=== PATIENT | female | born 1980 | race Caucasian/White ===

== ENCOUNTER → 2023-02-13 10:30 | Outpatient (BNV) | payer OTHER, SELFPAY | PROVIDERS: Visit Provider Clinical Nurse Specialist Psychiatric/Mental Health | DX: F31.12 Bipolar disorder, current episode manic without psychotic features, moderate (principal); F43.10 Post-traumatic stress disorder, unspecified | CPT/HCPCS: 90792; 99213 ==

== ENCOUNTER 2023-02-20 10:15 | Outpatient (RCR) | payer OTHER, SELFPAY ==
[2023-02-08 11:42] VITALS: BP 126/82; PULSE 72; TEMP 36.6
[2023-02-08 11:45] VITALS: BMI 48.4
--- NOTE | 2023-02-08 12:45 | PC.ADMIT ---
Patient is a 43 year old female who self referred to PHP d/t labile mood and step down from [facility] where [facility] was recently. She report she had a manic episode d/t insomnia and increased stress d/t living situation as she recently moved back in with her mother after break up with boyfriend and work related stressors. See below. Patient is unsure if she still has a job. She reports she is applying for PFMLA from work to work on her mental health. Eloina is alert and oriented x4. Calm and cooperative. Presented with depressed mood and affect. Denied SI. I gave Eloina a copy of her safety plan if needed and I reviewed this with her. Eloina stated she has her Medical Marijuana card. She stated she uses marijuana for Bipolar I, anxiety, and sleep. She uses socially 0-10 times a week with friends and every night. I gave Eloina verbal and written education on Marijuana use and potential health effects. Patient's medications reconciled with patient and patient's pharmacy. She stated her Trazodone was increased at her recent appointment with her prescriber Corinne James and reports she now takes Trazodone 100 mg take up to three tabs at [facility].
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
--- NOTE | 2023-02-09 17:17 | HO.PHP ---
Clients case was reviewed and opened today in treatment team.
--- NOTE | 2023-02-10 14:12 | HO.PHP ---
[facility] staff attempted to contact her OP therapist but was unable to get through.
--- NOTE | 2023-02-16 10:32 | HO.PHPPROGNO ---
Subjective Subjective Date of Service: 02/16/23 Reason For Visit: bipolar I,anxiety,PTSD Healthcare Proxy: No Guardianship: No Medical Problems Affecting Mental Status: No Interim History: pt is hypomanic; pressured speech, sleeping only 3 hours and feeling no need for more; monopolizing the group, talking over others, elevated mood; sasyy she forgot take any meds last night; she missed her trazodone and abilify because she fell asleep at 9p before taking them and then woke up feeling like she was ready to start the day. She has little insight and judegement poor; she denies SI or Hi; she is future orieted; she is able to listen when given education about need to take meds consistently. she is polte and pleasant but lacks insight. Medication Compliance: Intermittent Side effects from medications: No Attending Groups: Yes Review of Systems Acute medical concerns: No Medical Review of Systems: unchanged Review of Systems Review of Systems no changes Mental Status Exam Mental Status Exam Patient Appearance: Appropriate Patient Orientation: Person, Place, Time and Situation Level of Consciousness: Awake Patient Behavior: Appropriate, Talkative, Cooperative, Distractible and Good Eye Contact Mood Description: Expansive Affect Description: Cheerful, Anxious and Expansive Patient Cognition Impaired: No Ability to Follow Directions: Fair Speech Pattern: Appropriate, Excessive and Pressured Memory Description: Intact Hallucinations: None Delusions: Grandiose Thought Process: Distracted Thought Content: positive for Goal Oriented Abnormal Motor Activity Signs and Symptoms: Restlessness Judgement: Poor Judgement and Insight: poor judgment and insight Diagnostics Vital Signs (24Hr): BMI result Body Mass Index 48.4 Assessment & Plan Assessment & Plan (1) Bipolar 1 disorder with moderate heladio: Status: Acute Code(s): F31.12 - Bipolar disorder, current episode manic without psychotic features, moderate (2) Post traumatic stress disorder: Status: Acute Code(s): F43.10 - Post-traumatic stress disorder, unspecified Plan asessment: 43 yo woman with histroy of Bipolar Disorder and complex PTSD; rule out BPD presenting withhypomania. Her outpatient provider recently increased abilify and pt denies Side effects. Plan: start seroquel 50 mg at bedtime x 1 day then increase to 100mg at bedtime x 1 day then increase to 150mg at bedtime consider switching to seroquel XR and tapering abilify if seroquel not tolerated consider MUSA abilify salvador reduce trazodone to 100mg at bedtime prn continue outpatient med regimen group treatment per protocol substance education Patient educated on: diagnosis, medication risk/benefits and therapeutic strategies Informed Consent: understands and further education needed Reason for contiued partial hosp. stay Substantial Risk for: harm to self, inability to function and rapid decompensation Certification I certify that partial hospital treatment is medically necessary due to the symptoms and problems resulting from the patient's mental illness and the failure to treat the patient at the partial hospital level of care would likely result in the patient requiring inpatient psychiatric care which could not be prevented at a less intensive level of care. Total time managing care of this patient today _30___ minutes. Discharge Plan Discharge Attending provider: Chris Hatfield Additional Instructions: Eloina has an OP Therapist: Arabella Lopez ([place], [place]) next appointment is 03/07/2023 at 11 AM. Eloina also has a Psychiatrist: Corinne Collins ([place], [place]) next appointment is on 02/23/2023 at 10:30 AM. Medications: New quetiapine [Seroquel] 50 mg tablet 50 mg PO BEDTIME Qty: 30 0RF Rx Instructions: take one talet at bedtime x 1 day then take 2 tablets at bedtime x 1 days then take 3 tabs at bedtime Discontinued escitalopram oxalate 5 mg tablet 5 mg PO DAILY No Action multivitamin Tablet 1 tab PO DAILY Rx Instructions: Women's multivitamin. atorvastatin 20 mg tablet 20 mg PO DAILY lorazepam 0.5 mg tablet 0.5 mg PO TID PRN (Reason: anxiety) trazodone 100 mg tablet 100 - 300 mg PO BEDTIME lisinopril 10 mg tablet 10 mg PO DAILY metformin 500 mg tablet extended release 24 hr 500 mg PO BID aripiprazole 20 mg tablet 20 mg PO BEDTIME aripiprazole 5 mg tablet 5 mg PO BEDTIME cholecalciferol (vitamin D3) [Vitamin D3] 50 mcg (2,000 unit) tablet 50 mcg PO DAILY melatonin 10 mg tablet 10 mg PO BEDTIME Stand Alone Forms: Patient Portal Discharge page
--- NOTE | 2023-02-20 10:56 | P.PNPSP_ITS ---
Subjective Subjective Date of Service: 02/20/23 Reason For Visit: bipolar I,anxiety,PTSD Healthcare Proxy: No Guardianship: No Medical Problems Affecting Mental Status: No Interim History: Chart reviewed. Noted to medication evaluations. Is being discharged from partial hospital program today. Today patient reports that sleep was her main issue which led to hypomania and heladio. Reports of sleep had been off for a couple of months. Reports that Seroquel has been extremely helpful now getting 7 to 9 hours sleep per night at 150 mg. Has been some grogginess but also reports that this is improving today she does not feel groggy. She is also adjusted timing of taking Seroquel as well as other sleep hygiene approaches. Feels positive regarding medication regimen i.e. now she is off Lexapro and melatonin. Abilify is currently 25 mg and trazodone was lowered from 200 mg down to 100 mg. Hopeful she can gradually get off trazodone and maybe Abilify and then monotherapy with Seroquel. Is getting services through the [facility] and has an appointment on 02/23/2023. Overall has responded well to current treatment plan. No medication changes or additional recommendations. Has enough medication i.e. 50 mg tablets of Seroquel so that she can maintain 150 mg at bedtime through the end of this week i.e. until her appointment on 02/23/2023 and then get a new prescription for 150 mg after same. Medication Compliance: Yes Side effects from medications: No Attending Groups: Yes Review of Systems Acute medical concerns: No Medical Review of Systems: unchanged Review of Systems Review of Systems Yes all other systems are reviewed and are negative Mental Status Exam Mental Status Exam Narrative: Pleasant. Engaged. Well presented. Organized. Euthymic. No SI. No HI. No agitation. No psychosis. Insight and judgment good Diagnostics Vital Signs (24Hr): BMI result Body Mass Index 48.4 Assessment & Plan Assessment & Plan (1) Bipolar 1 disorder with moderate heladio: Status: Acute Code(s): F31.12 - Bipolar disorder, current episode manic without psychotic features, moderate Assessment and Plan: Overall has responded well to current treatment plan. No medication changes or additional recommendations. Has enough medication i.e. 50 mg tablets of Seroquel so that she can maintain 150 mg at bedtime through the end of this week i.e. until her appointment on 02/23/2023 and then get a new prescription for 150 mg after same. Patient educated on: therapeutic strategies Informed Consent: understands Reason for contiued partial hosp. stay Substantial Risk for: stable for discharge Certification I certify that partial hospital treatment is medically necessary due to the symptoms and problems resulting from the patient's mental illness and the failure to treat the patient at the partial hospital level of care would likely result in the patient requiring inpatient psychiatric care which could not be prevented at a less intensive level of care. Total time managing care of this patient today _30___ minutes. Discharge Plan Discharge Attending provider: Chris Hatfield Additional Instructions: Eloina has an OP Therapist: Arabella Lopez ([place], [place]) next appointment is 03/07/2023 at 11 AM. Eloina also has a Psychiatrist: Corinne Collins ([place], [place]) next appointment is on 02/23/2023 at 10:30 AM. Medications: New quetiapine [Seroquel] 50 mg tablet 50 mg PO BEDTIME Qty: 30 0RF Rx Instructions: take one talet at bedtime x 1 day then take 2 tablets at bedtime x 1 days then take 3 tabs at bedtime Discontinued escitalopram oxalate 5 mg tablet 5 mg PO DAILY No Action multivitamin Tablet 1 tab PO DAILY Rx Instructions: Women's multivitamin. atorvastatin 20 mg tablet 20 mg PO DAILY lorazepam 0.5 mg tablet 0.5 mg PO TID PRN (Reason: anxiety) trazodone 100 mg tablet 100 - 300 mg PO BEDTIME lisinopril 10 mg tablet 10 mg PO DAILY metformin 500 mg tablet extended release 24 hr 500 mg PO BID aripiprazole 20 mg tablet 20 mg PO BEDTIME aripiprazole 5 mg tablet 5 mg PO BEDTIME cholecalciferol (vitamin D3) [Vitamin D3] 50 mcg (2,000 unit) tablet 50 mcg PO DAILY melatonin 10 mg tablet 10 mg PO BEDTIME Stand Alone Forms: Patient Portal Discharge page Patient Education: Bipolar Disorder (DC) Telehealth Telehealth Location of provider rendering services: other ([place]) Location of patient: other ([facility]) Patient Identification confirmed using: Name, : Yes Telehealth method: video Patient verbally consented to treatment: Yes Minutes spent on Phone/Video with Pt.: 15
== END 2023-02-20 23:59 | disposition home or self-care (01) ==
LOC: HO.PHPA 10:15
PROVIDERS: Visit Provider Psychiatry & Neurology Psychiatry
DX: F31.12 Bipolar disorder, current episode manic without psychotic features, moderate (principal); F43.10 Post-traumatic stress disorder, unspecified
CPT/HCPCS: 90791; 90853